=== PATIENT | female | born 1955 | race Caucasian/White ===

== ENCOUNTER → 2016-11-23 | Outpatient (CLI) | payer BC ==
[~2016-11-23] MED LIST: ASPEC325 PO; FOLI1TAB7 PO; FRRG PO; METH2.5T PO; MTH25 PO; OXYC-57 PO; PRED-301 PO
--- NOTE | 2016-11-23 10:58 | DIAGNOSTIC IMAGING REPORT ---
CT OF THE CHEST WITHOUT IV CONTRAST CLINICAL HISTORY: Solitary pulmonary nodule COMPARISON STUDY: 08/26/2015 CT DOSE: 214.32 mGy.cm TECHNIQUE: CT of the thorax was performed from the thoracic inlet to the lung bases. Images are reviewed in the axial, sagittal, and coronal planes. IV contrast was not administered for this examination. FINDINGS: Thyroid: Imaged portions of the thyroid gland are normal in appearance. Thoracic aorta: The thoracic aorta is normal in course and caliber, noting standard 3 vessel arch anatomy. Heart: There is a small pericardial effusion minimally larger than on the prior study. Lungs and pleural spaces: No pleural effusions are visualized. There is no focal pulmonary consolidation. There are multiple bilateral subcentimeter pulmonary nodules. The largest on the right measures 5.5 mm and is located on image #[id number]. This remains unchanged in size. The largest parenchymal nodule on the left measures 4 mm and is located within the left upper lobe on image #[id number]. Multiple subcentimeter subpleural nodules are also visualized. The largest on the left is located in image #[id number]. This measures 6 mm. Mediastinum: There is no mediastinal lymphadenopathy. Angella: Clear. Axilla: Clear. Upper abdomen: Partially visualized upper abdominal viscera is within normal limits. Skeletal structures: There are no lytic or blastic osseous lesions. IMPRESSION: Multiple bilateral subcentimeter parenchymal and subpleural nodules, essentially unchanged from the prior August 2015 study. Electronically signed by: Flo Lacy M.D. 11/23/2016 10:56 AM Dictated Date/Time: 11/23/2016 10:50 AM
== END | disposition home or self-care (01) ==
LOC: C.CTS 09:59
PROVIDERS: ATTEND Internal Medicine
DX: R91.1 Solitary pulmonary nodule (principal)

== ENCOUNTER 2016-12-17 11:14 | Inpatient (IN) | payer BC ==
[2016-11-11 08:13] VITALS: BMI 23.0
--- NOTE | 2016-11-11 08:41 | PAT Medication Instructions ---
Service Date Nov 11, 2016. Current Home Medication List Folic Acid (Folvite), 1 MG PO HS Methotrexate (Methotrexate), 5 TABS PO SATURDAYS Prednisone (Prednisone), 5 MG PO DAILY PRN for RHUEMATOID FLARE Medication Instructions For Your Scheduled Surgery - Check with surgeon/prescribing physician for instructions: Methotrexate (Methotrexate), 5 TABS PO SATURDAYS - Take the following medications the morning of surgery with a sip of water: Prednisone (Prednisone), 5 MG PO DAILY PRN for RHUEMATOID FLARE - Take the following medications as scheduled the night before surgery: Prednisone (Prednisone), 5 MG PO DAILY PRN for RHUEMATOID FLARE Folic Acid (Folvite), 1 MG PO HS If you have any questions please call us at [phone] (Deya Bledsoe PA-C) or [phone] or [phone]
--- NOTE | 2016-11-11 09:40 | DIAGNOSTIC IMAGING REPORT ---
CHEST PREADMISSION(PA/LAT) HISTORY: Preop. COMPARISON: Chest 06/25/2014. FINDINGS: The lungs are clear. Cardiac silhouette is normal in size. No pleural effusions. No pneumothorax. IMPRESSION: No acute process. Electronically signed by: Galileo Blakely M.D. 11/11/2016 9:38 AM
[2016-11-11 09:52] LABS: BASO % 0.5 %; BASO ABS # 0.02 K/uL (0-0.2); COMPLETE YES; EOS % 1.6 %; HEMATOCRIT 38.7 % (37-47); IG% 0.2 %; LYMPH % 22.7 %; LYMPH ABS # 0.97 K/uL (1.2-3.4); MEAN CELL VOLUME 92.1 fL (80-100); MEAN CORPUSCULAR HGB CONC 33.6 g/dl (32-36); MEAN PLATELET VOLUME 10.4 fL (7.4-10.4); MONO % 7.5 %; NEUT % 67.5 %; PLATELET COUNT 229 K/uL (130-400); WHITE BLOOD COUNT 4.27 K/uL (4.8-10.8)
--- NOTE | 2016-11-11 09:59 | DIAGNOSTIC IMAGING REPORT ---
LATERAL CERVICAL SPINE RADIOGRAPHS, INCLUDING FLEXION AND EXTENSION CLINICAL HISTORY: Preoperative evaluation. Rheumatoid arthritis. COMPARISON STUDY: Cervical spine CT August 06, 2014. TECHNIQUE: Lateral radiographs of the cervical spine were obtained in the neutral, flexion and extension positions. FINDINGS: Alignment at the C1-C2 articulation is anatomic. There is no significant change during flexion or extension. There is 2 to 3 mm of anterolisthesis of C7 on T1 which does not significant change with flexion or extension. There is slight retrolisthesis of C5 on C6. This does not change with flexion or extension. There is minimal anterolisthesis of C4 on C5 which does not change with flexion or extension. Moderate multilevel degenerative disc disease is noted. There is no fracture. IMPRESSION: 1. No evidence of C1-C2 instability. 2. Mild anterolisthesis of C7 on T1 which does not significantly change with flexion or extension. 3. Moderate multilevel degenerative disc disease of the cervical spine with mild multilevel facet arthrosis. Electronically signed by: Gildardo Sanchez M.D. 11/11/2016 9:57 AM
[2016-11-11 10:07] LABS: PARTIAL THROMBOPLASTIN RATIO 1.1; PROTHROMBIN TIME (PATIENT) 10.3 SECONDS (9.0-12.0)
[2016-11-11 10:28] LABS: BLOOD UREA NITROGEN 15 mg/dl (7-18); BUN/CREATININE RATIO 23.8 (10-20); C-REACTIVE PROTEIN < 0.29 mg/dl (0-0.29); CALCIUM 9.5 mg/dl (8.5-10.1); CARBON DIOXIDE 27 mmol/L (21-32); CHLORIDE 104 mmol/L (98-107); CREATININE 0.61 mg/dl (0.60-1.20); GLUCOSE 79 mg/dl (70-99); SODIUM 140 mmol/L (136-145)
--- NOTE | 2016-12-10 00:42 | HISTORY & PHYSICAL EXAMINATION ---
DATE OF ADMISSION: 12/17/2016 CHIEF COMPLAINT: Right hip pain. HISTORY OF PRESENT ILLNESS: The patient is a 61-year-old female who is now about a little over 2-1/2 years out from cannulated screw fixation of a right valgus impacted femoral neck fracture. She did quite well until just about a year ago when she started developing pain and discomfort. No injury. Pain was pretty mild, intermittent initially, but over the past 6-7 months, it has gotten significantly worse. Over the past 2 months, it has actually gotten quite a bit worse even more so. She has trouble walking any distance. She describes lateral hip pain, groin pain and thigh pain. She limps with every step. She has really tried to avoid using a cane. She does have some underlying rheumatoid disease as well and on methotrexate for the past 4 years. X-rays show progressive hip collapse. She would like to proceed with surgical treatment. PAST MEDICAL HISTORY: Includes: 1. Colon cancer, status post resection without recurrence. 2. Rheumatoid disease for 4 years. PAST SURGICAL HISTORY: Includes: 1. Include in 1975. 2. Colon resection for cancer in 1996. 3. Hysterectomy. 4. Right cannulated screw fixation of femoral neck fracture done 07/04/2014. ALLERGIES: None. CURRENT MEDICINES: Include: 1. Methotrexate 15 mg once a week. 2. Folic acid 1 mg a day. 3. Prednisone p.r.n. for flareups of rheumatoid disease. SOCIAL HISTORY: A 61-year-old female. The patient is from [place]. FAMILY HISTORY: Noncontributory. REVIEW OF SYSTEMS: Significant for colon cancer, she has been disease free. Denies any chest pain or shortness of breath. No bleeding problems. She does have underlying rheumatoid disease, on methotrexate. PHYSICAL EXAMINATION: GENERAL: Reveals a healthy, pleasant middle-aged female. She looks to be in good health. HEENT: Benign. NECK: Supple. No lymphadenopathy. LUNGS: Clear to auscultation. HEART: Regular rate and rhythm. ABDOMEN: Soft, nontender, nondistended. EXTREMITIES: Grossly neurovascularly intact except as follows: Examination of the right hip and leg reveals the patient walks with a markedly antalgic gait. She is about 0.5 cm short on the right compared to the left. She did have marked pain with any type of hip motion. Her hip does move pretty freely despite this. Negative straight leg raise. X-RAYS: X-rays of the right hip were reviewed. They show cannulated screw fixation of valgus impacted femoral neck fracture. She does have collapse of the femoral head and looks like a segment of AVN. 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 This looks to have developed over the past year and gotten significantly worse over the past 2-3 months. She has failed conservative treatment. PLAN: We talked about treatment. We are going to plan on taking her to the operating room and do right total hip replacement. We will have to take the hardware out. The risks and benefits of this procedure were explained to the patient including but not limited to DVT, PE, , infection, neurological injury, vascular injury, bleeding problem, pain, limited range of motion, stiffness, failure to relieve her symptoms, incomplete relief of symptoms, need for further surgery in the future, fracture, leg length inequality, nerve palsy, persistent pain, dislocation, etc. The patient understands and desires to proceed. Informed consent was obtained. The patient had preoperative workup. Labs were all normal. Sed rate and C-reactive protein are normal. She knows to hold methotrexate 2 weeks preop and 2 weeks postop. She should be able to be discharged to home and use [facility]. I will see her back 2 weeks postop.
[2016-12-17] VITALS (13 sets, daily range): BP systolic 85–111; BP diastolic 57–61; PULSE 58–83; TEMP 36.2–36.9; O2SAT 93–98; Ht 167.6 cm; Wt 66.2 kg
[~2016-12-17] VITALS: Ht 167.6 cm; Wt 66.2 kg
[~2016-12-17 11:14] MED LIST changes: +ACETAMINOPHEN 500 MG TAB PO SCH; -ASPEC325 PO; +BUPIVACAINE 0.5 % 5 MG/1 ML PF 10ML VIAL ONE; +CEFAZOLIN 2000 MG/60 ML D5W 60 ML IV SCH; +FAMOTIDINE 20 MG TAB PO SCH; -FRRG PO; +GABAPENTIN 300 MG CAP PO SCH; +LACTATED RINGER'S 1000ML 1,000 ML IV SCH; +LACTATED RINGER'S 1000ML 500 ML IV ONE; +LACTATED RINGER'S 1000ML IV SCH; +METOCLOPRAMIDE HCL 10 MG TAB PO SCH; -MTH25 PO; -OXYC-57 PO; +SCOPOLAMINE 1.5 MG TDSY TD SCH; +TRANEXAMIC ACID INJ 1,000 MG in SODIUM CHLORIDE 0.9% 100ML 100 ML IV SCH
[2016-12-17] MEDS ORDERED: MoRPHine SULFATE PF 1 MG/ML 10 ML AMP/VIAL ONE (12:30)
[2016-12-17] MEDS ORDERED: MIDAZOLAM HCL 1 MG/ML 2ML VIAL ONE ×2 (12:30→14:37)
[2016-12-17] MEDS ORDERED: PROPOFOL IV EMULSION 10 MG/ML 20 ML VIAL IV ONE (12:31)
[2016-12-17] MEDS ORDERED: ONDANSETRON INJ 2 MG/ML 2 ML VIAL ONE (12:31)
[2016-12-17] MEDS ORDERED: LIDOCAINE HCL 2% 2 ML VIAL (20MG/ML) ONE (12:31)
--- NOTE | 2016-12-17 13:08 | History & Physical Bridge Note ---
H&P Re-Evaluation Bridge Note: I have examined the patient, reviewed the History & Physical and in the interval since the performance of the History & Physical I have noted the following changes of clinical significance: No changes noted
[2016-12-17] MEDS ORDERED: BUPIVACAINE/EPINEPHRINE 0.5% MPF 1:200,000 30 ML VIAL ONE (13:23)
[2016-12-17] MEDS ORDERED: SODIUM CHLORIDE 0.9% 1000ML 1,000 ML IV PRN (14:46)
[2016-12-17] MEDS ORDERED: NALOXONE HCL INJ 0.08 MG in SYRINGE 1.8 ML IV PRN (14:46)
[2016-12-17] MEDS ORDERED: NALOXONE HCL INJ 1 MG in SODIUM CHLORIDE 0.9% 1000ML 1,000 ML IV PRN (14:46)
[2016-12-17] MEDS ORDERED: LACTATED RINGER'S 1000ML 500 ML IV PRN (14:46)
[2016-12-17] MEDS ORDERED: MEPERIDINE HCL 25 MG/ML CARP IV PRN (15:00)
[2016-12-17] MEDS ORDERED: KETOROLAC TROMETHAMINE 30 MG/ML VIAL IV. PRN (15:00)
[2016-12-17] MEDS ORDERED: EpHEDrine SULFATE INJ 50 MG/ML AMP IV PRN (15:00)
[2016-12-17] MEDS ORDERED: NALBUPHINE HCL INJ 10 MG/ML AMP IV PRN (15:00)
[2016-12-17] MEDS ORDERED: MoRPHine SULFATE PF 1 MG/ML 10 ML AMP/VIAL EPI PRN (15:00)
[2016-12-17] MEDS ORDERED: NALOXONE HCL 0.4 MG/1 ML VIAL/CARP IV PRN (15:00)
[2016-12-17] MEDS ORDERED: DiphenhydrAMINE HCL 50 MG/ML VIAL IV PRN (15:00)
[2016-12-17] MEDS ORDERED: ONDANSETRON INJ 2 MG/ML 2 ML VIAL IV PRN (15:00)
[2016-12-17] MEDS ORDERED: NO NARCOTICS OR SEDATIVES SCH (15:00)
[2016-12-17] MEDS ORDERED: MoRPHine SULFATE 2 MG/ML CARP IV PRN (15:00)
[2016-12-17] MEDS ORDERED: BACITRACIN 50,000 UNITS IR ONE (15:05)
--- NOTE | 2016-12-17 15:25 | [facility] Post Operative Brief Note ---
Immediate Operative Summary Operative Date Dec 17, 2016. Pre-Operative Diagnosis Right hip pain, avascular necrosis and secondary DJD Post-Operative Diagnosis same as pre-operative Procedure(s) Performed Right Hip Hardware Removal; Right Total Hip Arthroplasty Uncemented Surgeon Dr. Isauro Connelly [employer] Surgeon(s) Joe Devlin PA-C Estimated Blood Loss 300 mL Findings Right Hip AVN + DJD Fluids (cc crystalloids) 2000 cc Specimens Permanent specimens A: Right femoral head B: Explanted hardware right hip Drains None Anesthesia Spinal Complication(s) None Disposition Recovery Room / PACU
[2016-12-17] MEDS ORDERED: BISACODYL 10 MG SUPP PR PRN (15:30)
[2016-12-17] MEDS ORDERED: ALUMINUM/MAGNESIUM/SIMETH (MAALOX MAX) 30 ML UDC PO PRN (15:30)
[2016-12-17] MEDS ORDERED: SILVER SULFADIAZINE 1% CR 50 GM JAR EXT PRN (15:30)
[2016-12-17] MEDS ORDERED: MAGNESIUM HYDROXIDE SUSP 30 ML UDC PO PRN (15:30)
--- NOTE | 2016-12-17 15:53 | Anesthesiology Progress Note ---
Anesthesia Post Op Note Date & Time Dec 17, 2016 at 15:53 Vital Signs Pain Intensity: 0 Vital Signs Past 12 Hours Date Time Temp Pulse Resp B/P Pulse Ox O2 Delivery O2 Flow Rate FiO2 12/17/16 15:50 36.4 97 20 93/54 97 Nasal Cannula 2 12/17/16 15:40 91 20 99/55 97 Mask 5 12/17/16 15:30 80 20 93/64 98 Mask 10 12/17/16 15:27 36.3 88 20 94/54 99 Mask 10 12/17/16 12:06 36.9 72 16 111/59 97 Room Air Notes Mental Status: alert / awake / arousable, participated in evaluation Pt Amnestic to Procedure: Yes Nausea / Vomiting: adequately controlled Pain: adequately controlled Airway Patency, RR, SpO2: stable & adequate BP & HR: stable & adequate Hydration State: stable & adequate Neuraxial Anesthesia: was administered, sensory block is resolving Anesthetic Complications: no major complications apparent
--- NOTE | 2016-12-17 15:54 | DIAGNOSTIC IMAGING REPORT ---
AP PELVIS AND RIGHT HIP 2 VIEWS CLINICAL HISTORY: Postop hip arthroplasty COMPARISON STUDY: 11/02/2016 FINDINGS: There are postsurgical changes of a total right hip arthroplasty. There is no dislocation. There are no acute fractures. There are overlying skin ilan. There is air within soft tissues consistent with history of recent surgery. IMPRESSION: Postsurgical changes of a total right hip arthroplasty Electronically signed by: Flo Lacy M.D. 12/17/2016 3:52 PM Dictated Date/Time: 12/17/2016 3:51 PM
[2016-12-17] MEDS: CHECK SCOPOLAMINE PATCH PLACEMENT SCH ×2 (16:26→23:59)
[2016-12-17] MEDS: D5W AND 1/2NSS + 20MEQ KCL 1,000 ML IV SCH (17:25)
[2016-12-17] MEDS: FERROUS GLUCONATE 324 MG TAB PO SCH (17:27)
[2016-12-17] MEDS: DOCUSATE SODIUM 100 MG CAP PO SCH (21:45)
[2016-12-17] MEDS: ACETAMINOPHEN 500 MG TAB PO SCH (21:46)
[2016-12-17] MEDS: CEFAZOLIN IV 1,000 MG in DEXTROSE 5% 50ML 50 ML IV SCH (21:58)
[2016-12-17] MEDS ORDERED: TRANEXAMIC ACID INJ 1,000 MG in SODIUM CHLORIDE 0.9% 100ML 100 ML IV SCH (22:00)
[2016-12-17] MEDS: ASPIRIN 325 MG ECTAB PO SCH (22:01)
[2016-12-18] VITALS (14 sets, daily range): BP systolic 86–120; BP diastolic 53–70; PULSE 56–81; TEMP 36.2–37; O2SAT 92–100
[2016-12-18] MEDS: D5W AND 1/2NSS + 20MEQ KCL 1,000 ML IV SCH ×2 (04:08→12:49)
--- NOTE | 2016-12-18 04:28 | OPERATIVE REPORT ---
DATE OF OPERATION: 12/17/2016 SURGEON: Dr. Isauro Connelly. BULLION WEIGHER: DARLENE Owens PREOPERATIVE DIAGNOSIS: 1. Right hip degenerative joint disease, secondary to avascular necrosis, status post a femoral neck fracture. 2, Retained hardware, status post a femoral neck fracture fixation. POSTOPERATIVE DIAGNOSIS: Same. PROCEDURES PERFORMED: 1. Right [id number] cross-linked polyethylene, uncemented total hip arthroplasty. 2. Right hip hardware removal. COMPLICATIONS: None. ESTIMATED BLOOD LOSS: 300 mL FLUID REPLACEMENT: 2000 mL crystalloid fluid replacement. ANESTHESIA: Spinal. DRAINS: None. SPECIMENS: 1. Right femoral head sent for pathology. 2. Right hip hardware. OPERATIVE INDICATIONS: The patient is a 61-year-old female with underlying rheumatoid disease, is 2-1/2 years out from a valgus impacted femoral neck fracture. She did not have any significant arthritis in her hip at that time and we treated her with cannulated screw fixation. She did well until about 6 months ago, when she developed significantly increased pain and discomfort in the right hip, markedly progressive over the past several months. She is having trouble getting around. X-rays showed collapse of the femoral head and secondary arthritis. The patient elected to proceed with operative treatment. OPERATIVE FINDINGS: Operative findings revealed avascular necrosis with collapse of the femoral head. She did have a very deficient posterior acetabular wall and a fairly poor formed acetabular wall. She did not have bone destruction of the acetabulum, but there was cartilage damage to the acetabulum. A moderate-sized joint effusion. Moderate synovitis. OPERATIVE IMPLANTS: Operative implants consisted of: 1. Biomet G7 size 52 mm acetabular shell. 2. A 6.5 cancellous acetabular screws, one at 35 mm in length, one at 15 mm in length. 3. An apex hole eliminator. 4. Biomet highly cross-linked polyethylene liner with a 52 mm outer diameter, 32 mm inner diameter with a +4 offset. 5. DePuy size 12 small stature AML femoral stem. 6. A +5/32 mm ceramic articular ball. OPERATIVE PROCEDURE: The patient was taken to the operating room, identified and placed on the operating table in supine position. All contact areas were appropriately padded. IV antibiotics were provided by anesthesia team. A spinal anesthetic had been implemented in the holding area. A Rowland catheter was placed in sterile fashion. The patient was then placed in the left lateral decubitus position. An axillary roll was placed. A Stulberg hip positioner was used for positioning. The right hip and leg were then prepped and draped in the usual sterile fashion. A posterolateral approach to the right hip was then performed through a curvilinear incision centered over the greater trochanter. Sharp dissection was carried through the subcutaneous tissues down to the level of the IT band and gluteal fascia. The IT band and gluteal fascia were then incised longitudinally in line with the skin incision. The underlying greater trochanteric bursa was excised. The piriformis and external rotators as well as the posterior capsule were then released from the posterior aspect of the femur as a single sleeve. Great care was taken throughout the procedure to protect the sciatic nerve at all times. The hip was internally rotated and dislocated. A femoral neck osteotomy cut was made with the final cut about a centimeter above the lesser trochanter. After cutting part of the way through the neck, I elected to remove the screws, as I could not complete the cut. The hip was then relocated. An incision was made directly over the vastus lateralis right over the screw heads. I then backed out each of the 3 screws along with the one washer and removed those. We then redislocated the hip. The femoral neck osteotomy was completed. Femoral head was removed and sent for pathology. The femur was retracted anteriorly and attention was then drawn to the acetabulum. The acetabular labrum was excised, then the pulvinar fat was excised. Sequential reaming of the acetabulum was then performed, beginning with a size 45 and progressing up to a 51. A 52 mm Biomet acetabular shell was then placed in about 40 degrees of lateral opening and 20-25 degrees of anteversion. Once again, her posterior wall was fairly deficient. We did get good interference fit. It was fixed with two 6.5 cancellous acetabular screws. I did remove a small anterior osteophyte. A trial liner was placed. Attention was then drawn to the femur. The proximal femur was entered with a cookie cutter followed by a canal finder and lateralizing reamer. Sequential reaming of the femur was then performed, beginning with a size 9 and progressing up to 11-1/2 till we got a pretty good chatter at 12. I then broached, beginning with a size 10.5 small broach and progressing to a 12 small. I did not think I could get the large broach in. The calcar reamer was used to smoothen off the calcar. We then trialed the hip. The soft tissue was extremely lax. I could almost just pop her hip back in without any traction. Therefore, we elected to place the +5 offset polyethylene liner. I really did not want to lengthen her any more, but we did get some improved soft tissue tension, but it was still pretty lax. Of note, her abductors were intact, but they just seemed really lax. Her hip was extremely stable with full extension and external rotation without instability and flexion to 90 degrees and internal rotation to 70 degrees. I elected to use these implants. All trial implants were removed. An apex hole eliminator was placed. A highly cross-linked polyethylene liner with a +5 offset was placed. A 12 small stature AML femoral stem was impacted in position. We had excellent scratch fit. A +5/32 mm ceramic articular ball was placed. The hip was once again located and found to be stable. Once again, it was a bit lax. The hip abductors seemed lax, but they were intact and we elected to accept this. Attention was then drawn toward closing. The wound was irrigated with copious amounts of pulsatile lavage solution. I did inject locally with 60 mL of 0.5% Marcaine with epinephrine. The posterior capsule and external rotators were repaired together with #2 TiCron sutures to the back of the greater trochanter through drill holes. The IT band and gluteal fascia were then closed with #1 PDS suture in a running fashion. I also closed the vastus lateralis with #1 PDS suture in a running fashion. The subcutaneous tissues were then closed in 2 layers and the deep layer with #1 Vicryl suture subcutaneous tissues with 2-0 Dexon suture in a buried interrupted fashion. The skin was the closed with skin ilan. Leg was then cleaned and dried and a sterile dressing with Xeroform, 4 x 4s, sterile ABD pad and foam tape was applied. The patient was then transferred to the recovery room in stable condition. The patient tolerated the procedure well with no complications. All needle and sponge counts were correct at the end of the operation. I attest to the content of the Intraoperative Record and any orders documented therein. Any exceptions are noted below. CARLEY
[2016-12-18] MEDS: CEFAZOLIN IV 1,000 MG in DEXTROSE 5% 50ML 50 ML IV SCH (05:39)
[2016-12-18] MEDS: ACETAMINOPHEN 500 MG TAB PO SCH ×3 (05:40→20:42)
[2016-12-18] MEDS: KETOROLAC TROMETHAMINE 30 MG/ML VIAL IV. SCH ×4 (05:40→23:23)
[2016-12-18 06:40] LABS: COMPLETE YES; HEMATOCRIT 30.9 % (37-47); LYMPH % 10.2 %; LYMPH ABS # 0.58 K/uL (1.2-3.4); MEAN CELL VOLUME 90.6 fL (80-100); MEAN CORPUSCULAR HEMOGLOBIN 30.5 pg (25-34); MEAN CORPUSCULAR HGB CONC 33.7 g/dl (32-36); MEAN PLATELET VOLUME 10.3 fL (7.4-10.4); NEUT % 82.8 %; PLATELET COUNT 157 K/uL (130-400); RED BLOOD COUNT 3.41 M/uL (4.2-5.4)
[2016-12-18] MEDS ORDERED: ASPEC325 PO (06:47)
[2016-12-18] MEDS ORDERED: FRRG PO (06:47)
[2016-12-18] MEDS ORDERED: OXYC-57 PO (06:47)
--- NOTE | 2016-12-18 06:49 | Discharge Instructions ---
Discharge Instructions Admission Reason for Admission: Right Hip Pain, Avascular Necrosis Of Hip Bone Discharge Discharge Diagnosis / Problem: Right Hip Replacement Discharge Goals Goal(s): Decrease discomfort, Improve function, Increase independence, Improve disease control, Therapeutic intervention Activity Recommendations Activity Limitations: per Instructions/Follow-up section (Total Hip Precautions ) Weightbearing Status: Right weightbearing . Instructions / Follow-Up Instructions / Follow-Up ACTIVITY RECOMMENDATIONS: Physical Therapy: * Aggressive physical therapy is not usually needed. You will learn to take care of yourself safely and walk. * Follow the "Hip Precautions Instructions." * In some cases, the social media senior associate at the hospital will arrange to have a therapist come to your house for the first couple of weeks to help you learn these skills. * You need to practice on your own or with the help of a family member as needed. * When you learn these skills, most of the therapy can be done on your own. Home Exercise: * You were shown a series of exercises in the hospital. Do these exercises three to four times each day including the exercises you were shown in physical therapy. Walking: * Get up and walk several times each day. For the first four weeks, try not to stand or walk for more than one hour at a time. If you do stand or walk for more than one hour, you will not hurt anything, but your leg will likely swell. * As you feel comfortable, you may change from the walker or crutches to a cane and then to independent walking. MEDICATIONS: New Medicine: * You will likely be taking one or more of these medicines: 1. Percocet - Take, as directed, when you need it, every four to six hours to control your pain. 2. Iron Sulfate - Take three times each day for the month after surgery to help you replace the blood lost during surgery. 3. Aspirin - Thins your blood to lessen the chance of forming a blood clot. * The most common side effects of pain medicine and iron are nausea and constipation. If nausea or constipation is too much of a problem or if you have any questions about your new medicines or doses, call [facility] at [phone]. We will try to help you manage these issues. VERY IMPORTANT TO READ AND REVIEW" Pain: * The immediate post-operative period after hip replacement surgery is often quite painful. * You are given a prescription for pain medicine. You should take it, as directed, when you need it, especially before physical therapy and before going to bed. Pain that interferes with sleep is very common and can last several months. * You will likely need pain medicine for the first two to four weeks. It will not stop all of the pain. The pain will lessen and as you feel better, you may change to milder pain medicine such as Tylenol. * The most common side effects of pain medicine are nausea and constipation, so don't take more than you need. SPECIAL CARE INSTRUCTIONS: TEDs/Elastic Stockings: * The white elastic stockings help limit swelling and prevent blood clots from forming in your legs. The more you wear them, the more they work. * Wear them for six weeks. Prevention of Infection: * Take antibiotics one hour before any dental cleaning, dental work, urological procedure, gastrointestinal procedure or any invasive surgery in order to prevent your new joint from getting infected. * You may get the antibiotics from the doctor performing the procedure or you may call our office at before and we will call in a prescription to the pharmacy of your choice. Things to Watch For: * Drainage from the incision site that occurs more than one week after your surgery. * Severely increased leg pain or swelling. * Increased redness at the incision site. * Fever above 102 degrees Fahrenheit. * Unusual chest pain or shortness of breath. * Unusual pain or burning with urination. Call [facility] at with any of the above problems or if you have any questions about your medicines or recovery. FOLLOW UP VISIT: Make an appointment to see your doctor for approximately two weeks after surgery for a progress check and staple removal by calling the office at . Current Hospital Diet Patient's current hospital diet: Regular Diet Discharge Diet Recommended Diet: Regular Diet Procedures Procedures Performed: Right Hip Hardware Removal; Right Total Hip Arthroplasty Uncemented Pending Studies Studies pending at discharge: no Medical Emergencies . Who to Call and When: Medical Emergencies: If at any time you feel your situation is an emergency, please call [phone] immediately. . Non-Emergent Contact Non-Emergency issues call your: Surgeon . "Provider Documentation" section prepared by Isauro Connelly. VTE Core Measure Inpt VTE Proph given/why not?: Other Anticoagulation, T.E.D. Stockings, SCD's
[2016-12-18] MEDS ORDERED: METOCLOPRAMIDE HCL INJ 5 MG/ML 2 ML VIAL IV PRN (07:00)
[2016-12-18] MEDS ORDERED: OXYCODONE HCL IR 5 MG TAB (IMMEDIATE RELEASE) PO PRN (07:00)
[2016-12-18] MEDS ORDERED: ONDANSETRON INJ 2 MG/ML 2 ML VIAL IV PRN (07:00)
[2016-12-18] MEDS ORDERED: DiphenhydrAMINE HCL 50 MG/ML VIAL IV PRN (07:00)
[2016-12-18] MEDS ORDERED: ZOLPIDEM TARTRATE 5 MG TAB PO PRN (07:00)
[2016-12-18] MEDS ORDERED: MoRPHine SULFATE 2 MG/ML CARP IV PRN (07:00)
[2016-12-18] MEDS ORDERED: DC INTRASPINAL MORPHINE ONE (07:00)
[2016-12-18 07:17] LABS: BUN/CREATININE RATIO 17.7 (10-20); CALCIUM 8.4 mg/dl (8.5-10.1); CREATININE 0.61 mg/dl (0.60-1.20)
[2016-12-18] MEDS: CHECK SCOPOLAMINE PATCH PLACEMENT SCH ×3 (08:00→23:21)
--- NOTE | 2016-12-18 08:18 | PROGRESS NOTE ---
DATE: 12/18/2016 SUBJECTIVE: A 61-year-old female postop day #1 from a right total hip replacement. She also has some underlying rheumatoid disease. She is doing well. Not having any significant pain. Denies any chest pain or shortness of breath. Not feeling dizzy or lightheaded. OBJECTIVE: VITAL SIGNS: Temperature 36.3. Vital signs stable. PHYSICAL EXAMINATION: GENERAL: Reveals a healthy, pleasant middle-aged female. She is sitting up in bed and looks pretty comfortable. LUNGS: Clear to auscultation. HEART: Regular rate and rhythm. ABDOMEN: Soft, nontender, nondistended. EXTREMITIES: Grossly neurovascularly intact except as follows. Examination of the right lower extremity reveals the leg to be well aligned. The dressing is clean, dry and intact. Hip is located. She is neurologically intact. LABS: Pending. ASSESSMENT: A 61-year-old female postop day #1 from a right total hip replacement, doing well. Pain is controlled. Hip is located. She is neurologically intact. PLAN: 1. DVT prophylaxis including thigh-high TEDs, SCDs, and aspirin twice a day. 2. PT/OT. Weightbearing as tolerated. Right total hip protocol. 3. Pain control. Doing well with current pain regimen. 4. Disposition: She has plans to be discharged home with home health once adequately recovered.
[2016-12-18] MEDS: PANTOprazole SOD 40 MG TAB PO SCH (08:37)
[2016-12-18] MEDS: TAPENTADOL ER 50 MG TABCR PO SCH ×2 (08:38→20:42)
[2016-12-18] MEDS: DOCUSATE SODIUM 100 MG CAP PO SCH ×2 (08:38→20:42)
[2016-12-18] MEDS: FERROUS GLUCONATE 324 MG TAB PO SCH ×3 (08:38→17:54)
[2016-12-18] MEDS: MULTIVITAMIN TAB PO SCH (08:38)
[2016-12-18] MEDS: ASPIRIN 325 MG ECTAB PO SCH ×2 (08:38→20:42)
[2016-12-19] MEDS: ACETAMINOPHEN 500 MG TAB PO SCH (05:36)
[2016-12-19 07:42] VITALS: BP 112/67; PULSE 73; TEMP 36.6; O2SAT 95
[2016-12-19] MEDS: TAPENTADOL ER 50 MG TABCR PO SCH (08:37)
[2016-12-19] MEDS: DOCUSATE SODIUM 100 MG CAP PO SCH (08:37)
[2016-12-19] MEDS: FERROUS GLUCONATE 324 MG TAB PO SCH (08:38)
[2016-12-19] MEDS: MULTIVITAMIN TAB PO SCH (08:38)
[2016-12-19] MEDS: ASPIRIN 325 MG ECTAB PO SCH (08:38)
[2016-12-19] MEDS: PANTOprazole SOD 40 MG TAB PO SCH (08:38)
[2016-12-19 08:45] VITALS: BP 112/67; PULSE 73; TEMP 36.6; O2SAT 95
--- NOTE | 2016-12-19 08:56 | PROGRESS NOTE ---
DATE: 12/19/2016 SUBJECTIVE: A 61-year-old female postop day 2 from a right total hip replacement and hardware removal. She is doing well. Pain is controlled. Therapy has gone well. Denies any chest pain or shortness of breath. Not feeling dizzy or lightheaded. OBJECTIVE: VITAL SIGNS: Temperature is 36.6. Vital signs stable. PHYSICAL EXAMINATION: GENERAL: Reveals a pleasant, middle-aged female. She is lying in bed, looks pretty comfortable. EXTREMITIES: Examination of the right hip reveals the dressing to be clean, dry and intact. Leg lengths are equal. Hip is located. She is neurologically intact. ASSESSMENT: A 61-year-old female postop day 2 from right total hip replacement and hardware removal, doing well. Pain is controlled. PLAN: 1. DVT prophylaxis including thigh-high TEDs, SCDs, and aspirin twice a day. 2. PT/OT. Weightbearing as tolerated. Right total hip protocol. 3. Pain control, doing well with current pain regimen. 4. Disposition: Plan to discharge to home with home health once adequately recovered.
[2016-12-19 10:21] VITALS: BP 112/67; PULSE 73; O2SAT 95
--- NOTE | 2016-12-29 14:04 | DISCHARGE SUMMARY ---
ADMITTING PHYSICIAN AND SURGEON: Dr. Connelly. ADMITTING DIAGNOSIS: 1. 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 2. Retained hardware from right femoral neck fracture. PROCEDURE PERFORMED: Right hip hardware removal. SURGERY PERFORMED: Right total hip arthroplasty. SECONDARY DIAGNOSES: Colon cancer, rheumatoid disease. HISTORY AND PHYSICAL EXAMINATION: Well documented in the patient's chart. HOSPITAL COURSE: The patient was admitted on 12/17/2016 underwent hardware removal and total hip arthroplasty and tolerated the procedure well. There were no complications. She was transferred to the PACU postoperatively and later to the orthopedic floor for further care. She was given Ancef for antibiotic prophylaxis, AMARILIS stockings, SCDs and aspirin for DVT prophylaxis. Her hemoglobin, hematocrit and vital signs were monitored during her hospital stay and remained stable. She developed some mild postoperative anemia with a hemoglobin down to 10.4, but did not require any blood transfusions. There were no complications. By postoperative day 2, she was tolerating a general diet, pain was controlled with oral pain medicine. She was participating in physical therapy and had no signs or symptoms of deep vein thrombosis. On postop day 2, she was discharged home in good condition, set up with home health services. She was given printed discharge instructions including new prescriptions for aspirin 325 mg b.i.d., iron supplement and Percocet. She can continue her home medications with the exception of methotrexate which she was told to stop. Continue physical therapy. Weightbearing as tolerated. Instructed on total hip precautions. Follow up in 10-12 days or sooner if there are any problems or concerns.
== END 2016-12-19 12:37 | disposition home health service (06) | DRG 470 ==
LOC: ENRESERVTM → ENRESERVDT → C.ACU 11:14 → C.3E 12:20
PROVIDERS: ADMIT Orthopaedic Surgery Sports Medicine; ATTEND Orthopaedic Surgery Sports Medicine
PROC: 0SR904A Replacement of Right Hip Joint with Ceramic on Polyethylene Synthetic Substitute, Uncemented, Open Approach (ICD-10-PCS; principal; 2016-12-17 13:00)
PROC: 0SPB04Z Removal of Internal Fixation Device from Left Hip Joint, Open Approach (ICD-10-PCS; principal; 2016-12-17 13:00)
DX: M87.851 Other osteonecrosis, right femur (principal); M16.11 Unilateral primary osteoarthritis, right hip; M65.9 Synovitis and tenosynovitis, unspecified; M06.9 Rheumatoid arthritis, unspecified; Z85.038 Personal history of other malignant neoplasm of large intestine; Z90.49 Acquired absence of other specified parts of digestive tract; Z90.710 Acquired absence of both cervix and uterus; Z98.890 Other specified postprocedural states; Z79.899 Other long term (current) drug therapy

== ENCOUNTER → 2017-03-03 | Outpatient (CLI) | payer BC ==
[~2017-03-03] MED LIST changes: -ACETAMINOPHEN 500 MG TAB PO SCH; +ASPEC325 PO; -BUPIVACAINE 0.5 % 5 MG/1 ML PF 10ML VIAL ONE; -CEFAZOLIN 2000 MG/60 ML D5W 60 ML IV SCH; -FAMOTIDINE 20 MG TAB PO SCH; +FRRG PO; -GABAPENTIN 300 MG CAP PO SCH; -LACTATED RINGER'S 1000ML 1,000 ML IV SCH; -LACTATED RINGER'S 1000ML 500 ML IV ONE; -LACTATED RINGER'S 1000ML IV SCH; -METH2.5T PO; -METOCLOPRAMIDE HCL 10 MG TAB PO SCH; +MTH25 PO; -SCOPOLAMINE 1.5 MG TDSY TD SCH; -TRANEXAMIC ACID INJ 1,000 MG in SODIUM CHLORIDE 0.9% 100ML 100 ML IV SCH
[2017-03-03 12:25] LABS: BASO % 0.5 %; BASO ABS # 0.02 K/uL (0-0.2); COMPLETE YES; EOS % 2.2 %; HEMATOCRIT 37.6 % (37-47); MEAN CELL VOLUME 91.9 fL (80-100); MEAN CORPUSCULAR HEMOGLOBIN 29.3 pg (25-34); MEAN CORPUSCULAR HGB CONC 31.9 g/dl (32-36); MEAN PLATELET VOLUME 10.8 fL (7.4-10.4); MONO % 10.8 %; NEUT % 64.5 %; PLATELET COUNT 210 K/uL (130-400); RED BLOOD COUNT 4.09 M/uL (4.2-5.4); WHITE BLOOD COUNT 4.09 K/uL (4.8-10.8)
[2017-03-03 14:23] LABS: ALT/SGPT 20 U/L (12-78); AST/SGOT 11 U/L (15-37); BLOOD UREA NITROGEN 16 mg/dl (7-18); BUN/CREATININE RATIO 26.9 (10-20); C-REACTIVE PROTEIN 0.84 mg/dl (0-0.29); CALCIUM 8.9 mg/dl (8.5-10.1); CARBON DIOXIDE 26 mmol/L (21-32); CHLORIDE 110 mmol/L (98-107); CREATININE 0.58 mg/dl (0.60-1.20); GLUCOSE 81 mg/dl (70-99); POTASSIUM 3.7 mmol/L (3.5-5.1); SODIUM 143 mmol/L (136-145)
[2017-03-03 14:25] LABS: ALB/GLOB RATIO 1.1 (0.9-2); ALKALINE PHOSPHATASE 78 U/L (45-117)
== END | disposition home or self-care (01) ==
LOC: C.LABBFT 08:41
PROVIDERS: ATTEND Internal Medicine
DX: M05.79 Rheumatoid arthritis with rheumatoid factor of multiple sites without organ or systems involvement (principal)

== ENCOUNTER 2017-06-27 11:30 | Emergency (ER) | payer BC ==
[~2017-06-27] VITALS: Ht 167.6 cm; Wt 68.0 kg
[~2017-06-27 11:30] MED LIST changes: -MTH25 PO
[2017-06-27] MEDS ORDERED: MTH25 PO (12:01)
[2017-06-27] MEDS ORDERED: MoRPHine SULFATE 4 MG/ML 1 ML CARP\\VIAL IV STA (12:01)
[2017-06-27 12:20] VITALS: BP 103/59; PULSE 51; O2SAT 99
--- NOTE | 2017-06-27 12:40 | DIAGNOSTIC IMAGING REPORT ---
RIGHT PELVIS/UNILATERAL HIP 2-3VIEWS CLINICAL HISTORY: Right hip dislocation. COMPARISON: Pelvis and right hip radiographs December 17, 2016. FINDINGS: Note is made of superior dislocation of the femoral component of the right hip arthroplasty with respect to the acetabular cup. No acute fracture is identified. IMPRESSION: Superior dislocation of the femoral component of the right hip arthroplasty. No acute fracture. Electronically signed by: Gildardo Sanchez M.D. 06/27/2017 12:39 PM Dictated Date/Time: 06/27/2017 12:37 PM
[2017-06-27] MEDS ORDERED: MoRPHine SULFATE 10 MG/ML CARP/VIAL IV PRN (12:45)
[2017-06-27 13:37] VITALS: BP 103/61; TEMP 36.5; O2SAT 100; Ht 167.6 cm; Wt 68.0 kg
--- NOTE | 2017-06-27 13:37 | History and Physical ---
History & Physical Date Jun 27, 2017. (Joe Devlin PA) Chief Complaint Right hip pain (Joe Devlin PA) History of Present Illness The patient is a 61 year old female with complaints of right hip pain. She is approx 6 months out from cannulated screw removal and right JARROD. She was doing well until this morning at about 11am. She was bending over to pull something from the ground when her hip popped. She had immediate pain in her hip and unable to bear weight. She presented to the ED for further eval. C/o only hip pain at this time. (Joe Devlin PA) Past Medical/Surgical History Medical Problems: (1) Rheumatoid arthritis (2) Right Hip AVN (3) Right Hip DJD 4) colon Cancer PSH: C section colon resection hysterectomy screw fixation of right hip fx right jarrod (Joe Devlin PA) Additional History Other: Review of systems: non contributory. (Joe Devlin PA) Allergies Coded Allergies: No Known Allergies (Verified , 06/27/17) Home Medications Scheduled Folic Acid (Folvite), 1 MG PO HS Methotrexate (Methotrexate), 2.5 MG PO WK Scheduled PRN Prednisone (Prednisone), 5 MG PO DAILY PRN for RHUEMATOID FLARE Physical Examination Respiratory/Chest: lungs clear Cardiovascular: regular rate, rhythm Extremities: + pertinent finding (right leg, shortened and internally rotated. Hip painful with any movement in bed. NVI. Able to DF/PF appropriately. ) Addiitonal Comments: xrays show right hip dislocation (Joe Devlin PA) Diagnosis Right Hip dislocation (Joe Devlin PA) Plan of Treatment NPO now. Last had something to eat or drink at 8:30am today. Will plan on closed reduction of right hip in the OR. Procedure explained including risk and benefit. Consent obtained. (Joe Devlin PA)
[2017-06-27 14:11] VITALS: O2SAT 96
--- NOTE | 2017-06-27 14:17 | EMERGENCY ROOM VISIT NOTE ---
History Report prepared by Bozenaibe: Carrol Johnson Under the Supervision of: Dr. Mat Haas D.O. First contact with patient: 11:53 Chief Complaint: HIP PAIN Stated Complaint: R HIP PAIN, HIP REPLACEMENT History of Present Illness The patient is a 61 year old female who presents to the Emergency Room with complaints of right hip discomfort. The patient states that around 11 AM this morning she was bending over to pick some weeds and heard a pop in the right hip. She had a hip replacement by Dr. Connelly done in the recent past. The patient denies any other symptoms other than the pain for she denies falling or striking her head. She denies any recent illnesses, abdominal pains, bowel or bladder dysfunction. Source of History: patient Onset: 11 am this morning Position: other (hip) Quality: other (discomfort) Associated Symptoms: No abdominal pain, No diarrhea, No urinary symptoms Note: pt denies falling, hitting head, and recent illness. Review of Systems As above otherwise negative for 10 systems Past Medical & Surgical Medical Problems: (1) Rheumatoid arthritis (2) Right Hip AVN (3) Right Hip DJD Family History no pertinent family history stated Social History Smoking Status: Never Smoker Alcohol Use: none Drug Use: none Marital Status: Housing Status: lives with family Current/Historical Medications Scheduled Folic Acid (Folvite), 1 MG PO HS Methotrexate (Methotrexate), 2.5 MG PO WK Scheduled PRN Prednisone (Prednisone), 5 MG PO DAILY PRN for RHUEMATOID FLARE Allergies Coded Allergies: No Known Allergies (Verified , 06/27/17) Physical Exam Vital Signs Date Time Temp Pulse Resp B/P (MAP) Pulse Ox O2 Delivery O2 Flow Rate FiO2 06/27/17 14:11 64 16 112/66 96 06/27/17 13:43 55 122/65 100 Nasal Cannula 2.0 06/27/17 13:37 36.5 18 103/61 100 Nasal Cannula 2.0 06/27/17 12:59 100 Nasal Cannula 2.0 06/27/17 12:55 67 103/61 93 Room Air 06/27/17 12:29 49 104/63 100 Room Air 06/27/17 12:20 51 18 103/59 99 Room Air 06/27/17 12:16 55 06/27/17 12:14 36.5 52 18 103/59 97 Room Air Physical Exam CONSTITUTIONAL/VITAL SIGNS: Reviewed / noted above. GENERAL: Non-toxic in appearance. INTEGUMENTARY: Warm, dry, and [place]. HEAD: Normocephalic. EYES: without scleral icterus or trauma. ENT/OROPHARYNX: clear and moist. LYMPHADENOPATHY/NECK: Is supple without lymphadenopathy or meningismus. RESPIRATORY: Lungs clear and equal. CARDIOVASCULAR: Regular rate and rhythm. GI/ABDOMEN: Soft and nontender. No organomegaly or pulsatile mass. No rebound or guarding. Normal bowel sounds. EXTREMITIES: Warm and well perfused. The patient has a shortened and internally rotated right leg. Good pulses. BACK: No CVA tenderness. NEUROLOGICAL: Intact without focal deficits. PSYCHIATRIC: normal affect. MUSCULOSKELETAL: Normally developed with good muscle tone. TRIAGE NURSING DOCUMENTATION REVIEWED. Medical Decision & Procedures ER Provider Diagnostic Interpretation: Radiology results as stated below per my review and radiologist interpretation: RIGHT PELVIS/UNILATERAL HIP 2-3VIEWS FINDINGS: Note is made of superior dislocation of the femoral component of the right hip arthroplasty with respect to the acetabular cup. No acute fracture is identified. IMPRESSION: Superior dislocation of the femoral component of the right hip arthroplasty. No acute fracture. Electronically signed by: Gildardo Sanchez M.D. Medications Administered Medications (Trade) Dose Ordered Sig/Jeremy Route Start Time Stop Time Status Last Admin Dose Admin Morphine Sulfate (MoRPHine SULFATE INJ) 4 mg NOW STAT IV 06/27/17 12:01 06/27/17 12:02 DC 06/27/17 12:09 4 MG Morphine Sulfate (MoRPHine SULFATE INJ) 6 mg Q15M PRN IV 06/27/17 12:45 07/11/17 12:44 06/27/17 12:50 6 MG ED Course 1155: Previous medical records were reviewed. The patient was evaluated in room B1. A complete history and physical examination was performed. 1201: Morphine Sulfate 4 mg IV 1240: Discussed the patient's case with Dr. Connelly-Orthopedics. 1245: Morphine Sulfate 6 mg IV 1305: I discussed the patient's radiology results with her. 1340: On reevaluation, the patient is resting. I discussed the results and findings with the patient. She verbalized agreement of the treatment plan. I spoke with Dr. Connelly. The patient will be evaluated for further management and care. Medical Decision Differential diagnosis: Etiologies such as fracture, dislocation, neurovascular compromise, compartment syndrome, soft tissue injury, as well as others were entertained. The patient is a 61 year old female who presents to the Emergency Room with complaints of right hip discomfort. The patient states that around 11 AM this morning she was bending over to pick some weeds and heard a pop in the right hip. She had a hip replacement by Dr. Connelly done in the recent past. X-rays reveal a right hip dislocation. I spoke with Dr. Connelly about this. He will take the patient to the OR for reduction. The patient last ate at 8:30 AM. Medication Reconcilliation Current Medication List: was personally reviewed by me Blood Pressure Screening Patient's blood pressure: Low blood pressure Blood pressure disposition: Did not require urgent referral Consults Time Called: 1230 Consulting Physician: Dr. Connelly-Orthopedics Returned Call: 1240 Discussed the patient's case. Impression Primary Impression: Hip dislocation, right Scribe Attestation The scribe's documentation has been prepared under my direction and personally reviewed by me in its entirety. I confirm that the note above accurately reflects all work, treatment, procedures, and medical decision making performed by me. Departure Information Dispostion Being Evaluated By Hospitalist Referrals Andrea Sharif M.D. (PCP) Patient Instructions My [facility]
[2017-06-27] MEDS ORDERED: PROPOFOL IV EMULSION 10 MG/ML 20 ML VIAL IV ONE (14:27)
[2017-06-27] MEDS ORDERED: LIDOCAINE HCL 2% 2 ML VIAL (20MG/ML) ONE (14:27)
[2017-06-27] MEDS ORDERED: FENTANYL CITRATE INJ 50 MCG/1 ML 2 ML VIAL ONE (14:27)
--- NOTE | 2017-06-27 14:46 | History & Physical Bridge Note ---
H&P Re-Evaluation Bridge Note: I have examined the patient, reviewed the History & Physical and in the interval since the performance of the History & Physical I have noted the following changes of clinical significance: Ptient with dislocated THR. NPO for 6+ hours with some weakness of Sciatic nerve function. Concerned that dislocated hip pushing on nerve. Feel the risks of waiting for additional time outweight benefits and best to relocate hip now and not wait additional 2 hours.
--- NOTE | 2017-06-27 15:04 | HISTORY & PHYSICAL EXAMINATION ---
DATE OF ADMISSION: 06/27/2017 ADDENDUM: ASSESSMENT AND PLAN: Sarina Pugh is a 61-year-old female now 6 months out from a right total hip replacement with underlying rheumatoid disease. She dislocated her hip earlier today. X-rays show a posterior dislocation. On exam, she does have some weakness in her sciatic nerve function with plantarflexion of her foot. It is intact, but this appears to be weak. She has been n.p.o. for 6+ hours and I think additional time is not appropriate to wait for an additional 2 hours for n.p.o. status concerned that she may be putting some pressure of the head on her sciatic nerve. I think it is more likely to due damage to let this sit 2 hours and than the risk of aspiration. I discussed these risks and we are going to proceed with a closed reduction, once again the nerve seems to function, but seems to be weak and I am concerned about leaving additional pressure on this nerve for additional several hours and I think it is best to do this relatively urgently. We are going to proceed with a closed reduction. The risks and benefits of this procedure were explained to the patient and family including but not limited to DVT, PE, fracture, dislocation, persistent nerve dysfunction, recurrent dislocation and inability to get the hip is located. They understands and desires to proceed. Informed consent was obtained. CARLEY
--- NOTE | 2017-06-27 15:06 | [facility] Post Operative Brief Note ---
Immediate Operative Summary Operative Date Jun 27, 2017. Pre-Operative Diagnosis Right Dislocated THR Post-Operative Diagnosis Same Procedure(s) Performed Closed reduction of right THR Surgeon Godwin [employer] Supervisor Surgeon(s) SHRUTI Devlin Estimated Blood Loss None Findings Dislocated THR Specimens None Anesthesia General Complication(s) None Disposition Recovery Room / PACU
--- NOTE | 2017-06-27 15:10 | Discharge Instructions ---
Discharge Instructions Date of Service Jun 27, 2017. Admission Reason for Admission: R Hip Pain, Hip Replacement Discharge Discharge Diagnosis / Problem: right hip dislocation Discharge Goals Goal(s): Decrease discomfort, Improve function, Therapeutic intervention Activity Recommendations Activity Limitations: per Instructions/Follow-up section Weightbearing Status: Right weightbearing (as tolerated) total hip precautions. sleep with a pillow between legs. . Instructions / Follow-Up Instructions / Follow-Up MEDICATIONS: * Resume previous medications unless instructed otherwise by your surgeon. * Always take pain medication on a full stomach or with food to avoid upset stomach. * Do not drink alcohol or drive while taking narcotics. * Ibuprofen or Tylenol may be taken if narcotic not needed. SPECIAL CARE INSTRUCTIONS: __ None __ Keep extremity elevated and iced x 48 hours; apply ice 20-30 minutes 8-10 times/day. May remove at night. __ Crutches __ May discard when able __ Brace/Post-op shoe __ 24 hrs/day __ Remove at night __ Dressing __ Maintain until seen in office, may shower with plastic over site __ Remove dressings in 24-48 hours and then may shower __ Cover incisions with band-aids after showering __ Do not remove steri-strips Call physician if chills or temperature rises above 102 degrees or pain unrelieved by prescribed pain medications. Office [phone] Follow up in 2-4 weeks. Weightbearing as tolerated. hip precautions. sleep with pillow between legs. Current Hospital Diet Patient's current hospital diet: Discharge Diet Recommended Diet: Regular Diet Procedures Procedures Performed: Closed reduction of right THR Pending Studies Studies pending at discharge: no Medical Emergencies . Who to Call and When: Medical Emergencies: If at any time you feel your situation is an emergency, please call 911 immediately. . Non-Emergent Contact Non-Emergency issues call your: Surgeon . "Provider Documentation" section prepared by Joe Devlin. . VTE Core Measure Inpt VTE Proph given/why not?: Treatment not indicated
[2017-06-27] MEDS ORDERED: SODIUM CHLORIDE 0.9% 1000ML 1,000 ML IV SCH (15:11)
[2017-06-27] MEDS ORDERED: ONDANSETRON INJ 2 MG/ML 2 ML VIAL IV PRN (15:15)
[2017-06-27] MEDS ORDERED: ATROPINE SULFATE 0.1 MG/ML 5ML SYR IV PRN (15:15)
[2017-06-27] MEDS ORDERED: PROMETHAZINE HCL INJ 6.25 MG in SODIUM CHLORIDE 0.9% 50ML 50 ML IV PRN (15:15)
[2017-06-27] MEDS ORDERED: EpHEDrine SULFATE INJ 50 MG/ML AMP IV PRN (15:15)
[2017-06-27] MEDS ORDERED: FENTANYL CITRATE INJ 50 MCG/1 ML 2 ML VIAL IV PRN (15:15)
[2017-06-27] MEDS ORDERED: OXYCODONE/ACETAMINOPHEN 5-325 TAB PO PRN ×2 (15:15)
[2017-06-27] MEDS ORDERED: SUCCINYLCHOLINE 100MG/5ML SYR IV ONE (15:23)
[2017-06-27] MEDS ORDERED: DEXAMETHASONE SOD INJ 4 MG/ML VIAL ONE (15:23)
[2017-06-27] MEDS ORDERED: ONDANSETRON INJ 2 MG/ML 2 ML VIAL ONE (15:23)
--- NOTE | 2017-06-27 15:49 | DIAGNOSTIC IMAGING REPORT ---
Radiology RIGHT HIP UNILATERAL 1 VIEW CLINICAL HISTORY: 61 years-old Female presenting with C/R RT HIP Right. TECHNIQUE: 3 fluoroscopic spot image(s) obtained as part of an intraoperative procedure. COMPARISON: 06/27/2017. FINDINGS/IMPRESSION: There has been interval reduction of previously noted dislocation of the right hip. Again noted are postsurgical changes of total right hip arthroplasty. No gross evidence of fracture. No residual malalignment. Please see surgical report for further details. Fluoroscopy dosage (mGy): Not available. Fluoroscopy time: 19 seconds. Number of fluoroscopic spot images: 3. Electronically signed by: Dre Ward M.D. 06/27/2017 3:48 PM Dictated Date/Time: 06/27/2017 3:47 PM
[2017-06-27 16:00] VITALS: BP 100/56; PULSE 75; TEMP 36.5; O2SAT 99
--- NOTE | 2017-06-27 16:02 | Anesthesiology Progress Note ---
Anesthesia Post Op Note Date & Time Jun 27, 2017 at 16:02 Vital Signs Pain Intensity: 0 Vital Signs Past 12 Hours Date Time Temp Pulse Resp B/P (MAP) Pulse Ox O2 Delivery O2 Flow Rate FiO2 06/27/17 15:45 61 16 104/60 100 Room Air 06/27/17 15:35 65 16 105/56 100 Oxymask 10 06/27/17 15:25 64 16 103/53 100 Oxymask 10 06/27/17 15:16 36.3 60 16 107/60 100 Oxymask 10 06/27/17 14:11 64 16 112/66 96 06/27/17 13:43 55 122/65 100 Nasal Cannula 2.0 06/27/17 13:37 36.5 18 103/61 100 Nasal Cannula 2.0 06/27/17 12:59 100 Nasal Cannula 2.0 06/27/17 12:55 67 103/61 93 Room Air 06/27/17 12:29 49 104/63 100 Room Air 06/27/17 12:20 51 18 103/59 99 Room Air 06/27/17 12:16 55 06/27/17 12:14 36.5 52 18 103/59 97 Room Air Notes Mental Status: alert / awake / arousable, participated in evaluation Pt Amnestic to Procedure: Yes Nausea / Vomiting: adequately controlled Pain: adequately controlled Airway Patency, RR, SpO2: stable & adequate BP & HR: stable & adequate Hydration State: stable & adequate Anesthetic Complications: no major complications apparent
[2017-06-27 16:30] VITALS: BP 109/60; PULSE 61; O2SAT 100
[2017-06-27 16:58] VITALS: BP 112/58; PULSE 60; TEMP 36.4; O2SAT 100
--- NOTE | 2017-06-27 22:47 | OPERATIVE REPORT ---
DATE OF OPERATION: 06/27/2017 SURGEON: Isauro Connelly MD. THERAPEUTIC ASSISTANT: DARLENE Owens. PREOPERATIVE DIAGNOSIS: Right dislocated total hip arthroplasty. POSTOPERATIVE DIAGNOSIS: Same. PROCEDURE PERFORMED: Closed reduction of right dislocated total hip replacement. COMPLICATION: None. ESTIMATED BLOOD LOSS: None. ANESTHESIA: General. SPECIMENS: None. OPERATIVE INDICATIONS: The patient is a 61-year-old female with underlying rheumatoid arthritis, who is now 6 months out from a total hip replacement. She has done remarkably well and without any problems. This morning she was out in her garden weeding and she bent over and twisted and pulled on something and her hip popped out. She was seen in the Emergency Room, x-rays revealed dislocation. We were consulted and the patient was indicated for closed reduction. Of note, the patient does seem to have a little bit of weakness in her sciatic nerve function and I was concerned about pressure being placed on the nerve by the hip prosthesis dislocated posteriorly and superiorly, and we elected to proceed with relatively urgent relocation. OPERATIVE PROCEDURE: The patient was taken to the operating room, identified and placed on the operating table in supine position. All contact areas were meticulously padded. General anesthetic was implemented by anesthesia team. X-ray was then brought in. I applied some longitudinal traction, flexed her hip and adducted her hip and internally rotated it. I was able to relocate the hip without extreme tension or difficulty. Post-reduction exam revealed the hip to be extremely stable. I could flex her hip to 90 degrees, adduct and internally rotate to 50 degrees without signs of instability. X-ray was obtained to rule out any fracture. The patient was then brought out of general anesthesia and transferred to the recovery room in stable condition. The patient tolerated the procedure well with no complications. She was neurologically intact in recovery room with normal sciatic nerve function. I attest to the content of the Intraoperative Record and any orders documented therein. Any exceptions are noted below. CARLEY
== END 2017-06-27 14:12 | disposition home or self-care (01) ==
LOC: C.EDB 11:31
DX: S73.004A Unspecified dislocation of right hip, initial encounter (principal); X50.9XXA Other and unspecified overexertion or strenuous movements or postures, initial encounter; M06.9 Rheumatoid arthritis, unspecified; M16.11 Unilateral primary osteoarthritis, right hip

== ENCOUNTER → 2017-08-24 | Outpatient (CLI) | payer BC ==
[~2017-08-24] MED LIST changes: -ASPEC325 PO; -FRRG PO; +MTH25 PO
--- NOTE | 2017-08-24 09:36 | DIAGNOSTIC IMAGING REPORT ---
(CHEST) THORAX WITHOUT CLINICAL HISTORY: Pulmonary nodules. Follow-up study. COMPARISON STUDY: 11/23/2016 CT DOSE: 210.96 mGy.cm TECHNIQUE: CT of the thorax was performed from the thoracic inlet to the lung bases. Images are reviewed in the axial, sagittal, and coronal planes. IV contrast was not administered for this examination. A dose lowering technique was utilized adhering to the principles of ALARA. FINDINGS: Thyroid: There is equivocal 1 cm left lobe thyroid nodule Thoracic aorta: The thoracic aorta is normal in course and caliber, noting standard 3 vessel arch anatomy. Heart: There is a trace pericardial effusion. Lungs and pleural spaces: No pleural effusions are visualized. There is no focal pulmonary consolidation. There are multiple bilateral subcentimeter parenchymal and subpleural nodules, essentially unchanged from the prior study. Mediastinum: There is no pathologic mediastinal lymphadenopathy Angella: There is no pathologic hilar adenopathy given the limitations of a noncontrast study Axilla: There is no pathologic axillary lymphadenopathy Upper abdomen: Partially visualized upper abdominal viscera is within normal limits. Skeletal structures: There are no lytic or blastic osseous lesions. IMPRESSION: Multiple bilateral subcentimeter parenchymal and subpleural pulmonary nodules, essentially unchanged from the preceding study. Electronically signed by: Flo Lacy M.D. 08/24/2017 9:34 AM Dictated Date/Time: 08/24/2017 9:25 AM
== END | disposition home or self-care (01) ==
LOC: C.CTS 09:08
PROVIDERS: ATTEND Internal Medicine
DX: R91.8 Other nonspecific abnormal finding of lung field (principal)

== ENCOUNTER → 2017-11-22 | Outpatient (CLI) | payer OTHER ==
[~2017-11-22] MED LIST changes: -FOLI1TAB7 PO; +FOLI1TAB8 PO
--- NOTE | 2017-11-22 14:29 | MAMMOGRAPHY REPORT ---
BILATERAL DIGITAL SCREENING MAMMOGRAM TOMOSYNTHESIS WITH CAD: 11/22/2017 CLINICAL HISTORY: Routine screening examination. TECHNIQUE: Breast tomosynthesis in addition to standard 2D mammography was performed. Current study was also evaluated with a Computer Aided Detection (CAD) system. COMPARISON: Comparison is made to exams dated: 01/23/2016 mammogram, 06/11/2014 mammogram, 01/29/2013 ma mmogram, 11/26/2009 mammogram, 09/15/2005 mammogram - [facility], and 10/02/2007. BREAST COMPOSITION: There are scattered areas of fibroglandular density in both breasts. FINDINGS: The parenchymal pattern is similar to prior mammograms. There are stable intramammary lym ph nodes in the lateral right breast. A few benign-appearing calcifications. No developing mass, ar chitectural distortion or cluster of suspicious microcalcifications is seen in either breast. IMPRESSION: ACR BI-RADS CATEGORY 2: BENIGN There is no mammographic evidence of malignancy. A 1 year screening mammogram is recommended. The pa tient will receive written notification of the results. Approximately 10% of breast cancers are not detected with mammography. A negative mammographic report should not delay biopsy if a clinically suggestive mass is present. Gale Springer M.D. ay/:11/22/2017 12:35:10 Ecommerce Project Manager: Martha NAVAS(Marya)(M), [facility] letter sent: Normal 1/2 BI-RADS Code: ACR BI-RADS Category 2: Benign
== END | disposition home or self-care (01) ==
LOC: C.MAMM 08:32
PROVIDERS: ATTEND Obstetrics & Gynecology
DX: Z12.31 Encounter for screening mammogram for malignant neoplasm of breast (principal)

== ENCOUNTER 2018-03-16 16:42 | Emergency (ER) | payer OTHER ==
[~2018-03-16] VITALS: Ht 167.6 cm; Wt 69.7 kg
[2018-03-16 16:51] VITALS: TEMP 36.5; Ht 167.6 cm; Wt 69.7 kg
[2018-03-16] MEDS ORDERED: HYDROmorphone INJ 1 MG/ML SYR IV STA (17:00)
[2018-03-16] MEDS ORDERED: SODIUM CHLORIDE 0.9% 1000ML 1,000 ML IV STA (17:00)
[2018-03-16] MEDS ORDERED: SODIUM CHLORIDE 0.9% 500ML 500 ML IV STA (17:00)
[2018-03-16] MEDS ORDERED: ONDANSETRON INJ 2 MG/ML 2 ML VIAL IV STA (17:00)
--- NOTE | 2018-03-16 17:08 | EMERGENCY ROOM VISIT NOTE ---
History Report prepared by [facility]: Garima De La Paz Under the Supervision of: Dr. Maryellen Gomes M.D. First contact with patient: 16:56 Chief Complaint: HIP PAIN Stated Complaint: DISLOCATED HIP (REPLACED) History of Present Illness The patient is a 62 year old female who presents to the Emergency Room with complaints of sudden right hip pain beginning shortly prior to arrival. The patient states that she had her right hip replaced on 12/17/16 and that she was in her garden today when she bent over and dislocated her hip. She rates her pain at a 5/10. The patient reports a medical history of rheumatoid arthritis. Source of History: patient Onset: shortly prior to arrival Position: other (right hip ) Symptom Intensity: rated at a 5/10 Quality: other (pain) Timing: other (sudden ) Review of Systems See HPI for pertinent positives & negatives. A total of 10 systems reviewed and were otherwise negative. Past Medical & Surgical Medical Problems: (1) Rheumatoid arthritis (2) Right Hip AVN (3) Right Hip DJD Family History Cancer Diabetes mellitus Hypertension Social History Smoking Status: Never Smoker Alcohol Use: none Drug Use: none Marital Status: Housing Status: lives with family Current/Historical Medications Scheduled Folic Acid (Folvite), 1 MG PO HS Methotrexate (Methotrexate), 2.5 MG PO WK Scheduled PRN Cetirizine (Zyrtec), 10 MG PO DAILY PRN for ALLERGIES Prednisone (Prednisone), 5 MG PO DAILY PRN for RHUEMATOID FLARE Allergies Coded Allergies: No Known Allergies (Verified , 03/16/18) Physical Exam Vital Signs Date Time Temp Pulse Resp B/P (MAP) Pulse Ox O2 Delivery O2 Flow Rate FiO2 03/16/18 20:46 64 16 126/58 98 Room Air 03/16/18 20:22 73 14 119/68 98 Room Air 03/16/18 20:20 68 14 108/67 98 Room Air 03/16/18 20:11 67 12 103/60 100 Nasal Cannula 2.0 03/16/18 20:02 76 12 109/85 100 Nasal Cannula 2.0 03/16/18 20:01 76 12 109/85 100 Nasal Cannula 2.0 03/16/18 18:53 58 20 117/80 100 Room Air 03/16/18 17:50 61 16 122/67 99 03/16/18 17:11 61 16 107/64 96 Room Air 03/16/18 17:09 60 03/16/18 16:51 36.5 64 20 95/58 96 Room Air Physical Exam Vital signs reviewed. General: Well-appearing female, in no significant distress. HEENT: No scleral icterus, PERRLA, neck supple. Atraumatic. Cardiovascular: Regular rate and rhythm, no extra sounds. Pulmonary: Clear to auscultation bilaterally, normal work of breathing. Abdomen: Soft, nontender, nondistended, positive bowel sounds. Musculoskeletal: No peripheral edema. Shortening of internal rotation of the right leg with flexion at the hip. Neurovascularly intact distally. Unable to move leg without significant pain. Neurologic: Patient awake alert and oriented x 3 Skin: Warm, dry, no rash Medical Decision & Procedures ER Provider Diagnostic Interpretation: Radiology results as stated below per my review and radiologist interpretation: CHEST ONE VIEW PORTABLE CLINICAL HISTORY: 62 years-old Female presenting with Right hip dislocation. TECHNIQUE: Portable supine AP view of the chest was obtained. COMPARISON: 11/11/2016. FINDINGS: Atherosclerosis of aortic arch. Cardiac silhouette mildly enlarged. No focal opacity. No large effusion or pneumothorax. Osseous structures normal. Upper abdomen normal. IMPRESSION: 1. Apparent mild cardiomegaly, new from prior though this may be due to AP technique. No other convincing evidence of acute cardiopulmonary disease. Electronically signed by: Dre Ward M.D. 03/16/2018 5:57 PM Dictated Date/Time: 03/16/2018 5:56 PM R HIP UNILATERAL 2 VIEWS CLINICAL HISTORY: 62 years-old Female presenting with R hip dislocation. TECHNIQUE: Frontal and crosstable lateral views of the right hip were obtained. COMPARISON: 11/02/2016. FINDINGS: There has been interval total right hip arthroplasty with dislocation of the femoral head component. Crosstable lateral view either demonstrates interval reduction of the dislocation or projectional overlap of the acetabulum and femoral head. No periprosthetic fracture. Visualized portion of the bony pelvis intact. No hardware complication. No radiographic soft tissue abnormality. IMPRESSION: The femoral head component of the total right hip arthroplasty overlaps with the acetabulum on crosstable lateral view whereas the initial radiograph demonstrated dislocation of the femoral head component. This could indicate spontaneous reduction or be artifactual due to projectional overlap of the prosthetic components. Follow-up radiograph recommended. Electronically signed by: Dre Ward M.D. 03/16/2018 5:56 PM Dictated Date/Time: 03/16/2018 5:54 PM R HIP UNILATERAL 2 VIEWS HISTORY: 62 years-old Female R hip reduction status post reduction of right hip dislocation COMPARISON: Right hip radiographs of same day at 5:19 PM TECHNIQUE: 2 views of the right hip FINDINGS: Status post reduction of the right hip arthroplasty which now appears to be in satisfactory positioning. The acetabular component however appears to be tilted somewhat volarly. The bones are mildly demineralized. Mild osteoarthritis about the left hip. Phleboliths of the pelvis. Mild soft tissue swelling about the right hip. IMPRESSION: Status post reduction of the right hip arthroplasty with satisfactory alignment. The above report was generated using voice recognition software. It may contain grammatical, syntax or spelling errors. Electronically signed by: Stuart Caceres M.D. 03/16/2018 8:33 PM Dictated Date/Time: 03/16/2018 8:30 PM Laboratory Results 03/16/18 17:06 Red Blood Count 4.19, Mean Corpuscular Volume 92.4, Mean Corpuscular Hemoglobin 31.0, Mean Corpuscular Hemoglobin Concent 33.6, Mean Platelet Volume 10.2, Neutrophils (%) (Auto) 62.1, Lymphocytes (%) (Auto) 27.8, Monocytes (%) (Auto) 7.3, Eosinophils (%) (Auto) 2.1, Basophils (%) (Auto) 0.5, Neutrophils # (Auto) 3.48, Lymphocytes # (Auto) 1.56, Monocytes # (Auto) 0.41, Eosinophils # (Auto) 0.12, Basophils # (Auto) 0.03 03/16/18 17:06 Test 03/16/18 17:06 White Blood Count 5.61 K/uL (4.8-10.8) Red Blood Count 4.19 M/uL (4.2-5.4) Hemoglobin 13.0 g/dL (12.0-16.0) Hematocrit 38.7 % (37-47) Mean Corpuscular Volume 92.4 fL (80-100) Mean Corpuscular Hemoglobin 31.0 pg (25-34) Mean Corpuscular Hemoglobin Concent 33.6 g/dl (32-36) Platelet Count 217 K/uL (130-400) Mean Platelet Volume 10.2 fL (7.4-10.4) Neutrophils (%) (Auto) 62.1 % Lymphocytes (%) (Auto) 27.8 % Monocytes (%) (Auto) 7.3 % Eosinophils (%) (Auto) 2.1 % Basophils (%) (Auto) 0.5 % Neutrophils # (Auto) 3.48 K/uL (1.4-6.5) Lymphocytes # (Auto) 1.56 K/uL (1.2-3.4) Monocytes # (Auto) 0.41 K/uL (0.11-0.59) Eosinophils # (Auto) 0.12 K/uL (0-0.5) Basophils # (Auto) 0.03 K/uL (0-0.2) RDW Standard Deviation 43.5 fL (36.4-46.3) RDW Coefficient of Variation 13.0 % (11.5-14.5) Immature Granulocyte % (Auto) 0.2 % Immature Granulocyte # (Auto) 0.01 K/uL (0.00-0.02) Anion Gap 6.0 mmol/L (3-11) Est Creatinine Clear Calc Drug Dose 70.0 ml/min Estimated GFR () 95.2 Estimated GFR (Non- 82.2 BUN/Creatinine Ratio 23.9 (10-20) Calcium Level 8.7 mg/dl (8.5-10.1) Magnesium Level 2.1 mg/dl (1.8-2.4) Total Bilirubin 0.6 mg/dl (0.2-1) Direct Bilirubin 0.1 mg/dl (0-0.2) Aspartate Amino Transf (AST/SGOT) 12 U/L (15-37) Alanine Aminotransferase (ALT/SGPT) 16 U/L (12-78) Alkaline Phosphatase 70 U/L (45-117) Total Protein 7.1 gm/dl (6.4-8.2) Albumin 3.7 gm/dl (3.4-5.0) Laboratory results per my review. Medications Administered Medications (Trade) Dose Ordered Sig/Jeremy Route Start Time Stop Time Status Last Admin Dose Admin Hydromorphone HCl (Dilaudid Inj) 1 mg NOW STAT IV 03/16/18 17:00 03/16/18 17:03 DC 03/16/18 17:11 1 MG Ondansetron HCl (Zofran Inj) 4 mg NOW STAT IV 03/16/18 17:00 03/16/18 17:03 DC 03/16/18 17:11 4 MG Sodium Chloride 1,000 ml @ 125 mls/hr Q8H STAT IV 03/16/18 17:00 03/16/18 21:51 DC 03/16/18 17:11 125 MLS/HR Sodium Chloride 500 ml @ 999 mls/hr Q31M STAT IV 03/16/18 17:00 03/16/18 17:30 DC 03/16/18 17:11 999 MLS/HR Potassium Chloride 100 ml @ 100 mls/hr NOW STAT IV 03/16/18 18:16 03/16/18 19:15 DC 03/16/18 18:50 100 MLS/HR Procedure Procedural Sedation Indication right hip dislocation. Total time: 6257-5617 (15 minutes) Written consent was obtained after the risks and benefits were explained to the patient, including, but not limited to aspiration, allergic reaction, breathing difficulties, cardiac complications, vomiting, pain, event recall, bleeding, and /or infection. Pre-sedation examination and paperwork completed. The patient was on 100% oxygen via NRB prior to the procedure. Continuous end tidal CO2 monitoring, pulse oximetry, and cardiac monitoring were utilized. Suction, airway equipment, medications, respiratory equipment, and appropriate personnel were prepared prior to the initiation of the procedure. A time out was taken. Sedation was achieved utilizing 75 mg of Propofol. After I observed the patient had reached the appropriate level of sedation the main procedure was performed without complication. Sedation was discontinued and the monitoring continued. The patient recovered quickly from the effects of the medication without complication or adverse event. ECG Per My Interpretation Indication: weakness Rate (beats per minute): 57 Rhythm: sinus bradycardia Findings: no acute ischemic change, no ectopy ED Course 165: Past medical records reviewed. The patient was evaluated in room B1. A complete history and physical examination was performed. 1700: Ordered Sodium Chloride 500 ml @ 999 mls/hr IV, Sodium Chloride 1,000 ml @ 125 mls/hr IV, Zofran Inj 4 mg IV, Dilaudid Inj 1 mg IV. 175: I reviewed the patient's case with Dr. Connelly. I will sedate the patient with Dr. Connelly at 2029. 175: I updated the patient. 1815: Ordered Potassium Chloride 100 ml @ 100 mls/hr IV. 1832: Ordered Propofol 100 mg IV. 2001: Conscious sedation was performed. 2034: Dr. Connelly said that the patient can go home after she wakes up a little. 2109: Upon reevaluation, the patient appeared to have improvement of her symptoms. I discussed findings with her. She verbalized agreement of the treatment plan. She was discharged home. Medical Decision Differential diagnosis: Etiologies such as fracture, dislocation, neurovascular compromise, compartment syndrome, soft tissue injury, as well as others were entertained. This patient was evaluated and appeared to be in right lower extremity is noted to be shortened and internally rotated. X-ray was obtained and reveals some discomfort. IV access was obtained and laboratory work was drawn. Patient's a dislocated hip arthroplasty. There is no apparent bony fracture. Dr. Connelly of orthopedic surgery was consulted. He agreed to evaluate the patient in the emergency department for reduction. The patient's last meal was around 12:00 today with a cut out worker snack at 2 PM. Patient was held until 8 PM for conscious sedation by myself with Dr. Connelly doing a hip reduction. Please read notes for further details. Patient tolerated the procedure well, the hip was reduced without difficulty. She recovered in the emergency department and was discharged with care of her . She will follow-up with Dr. Connelly in the office and return to the ER for worsening of symptoms or any medical concerns. Medication Reconcilliation Current Medication List: was personally reviewed by me Blood Pressure Screening Patient's blood pressure: Normal blood pressure Consults Time Called: 1749 Consulting Physician: Dr. Isaac Connelly [facility] Returned Call: 1750 I reviewed the patient's case with Dr. Connelly. I will sedate the patient with Dr. Connelly at 2029. Impression Primary Impression: Dislocation of right hip Additional Impression: S/P total hip arthroplasty Scribe Attestation The scribe's documentation has been prepared under my direction and personally reviewed by me in its entirety. I confirm that the note above accurately reflects all work, treatment, procedures, and medical decision making performed by me. Departure Information Dispostion Home / Self-Care Referrals Andrea Sharif M.D. (PCP) Isauro Connelly M.D. Forms HOME CARE DOCUMENTATION FORM, IMPORTANT VISIT INFORMATION, WORK / SCHOOL INSTRUCTIONS Patient Instructions Hip Precautions, My [employer] Additional Instructions Diagnosis: Right hip dislocation, status post hip replacement Please contact Dr. Connelly for follow-up within the next 2 weeks. Continue hip precautions as previously instructed. Return to the emergency department for worsening of symptoms or any medical concerns. Problem Qualifiers
[2018-03-16 17:23] LABS: BASO % 0.5 %; BASO ABS # 0.03 K/uL (0-0.2); EOS % 2.1 %; EOS ABS # 0.12 K/uL (0-0.5); HEMATOCRIT 38.7 % (37-47); IG# 0.01 K/uL (0.00-0.02); LYMPH % 27.8 %; LYMPH ABS # 1.56 K/uL (1.2-3.4); MEAN CELL VOLUME 92.4 fL (80-100); MEAN CORPUSCULAR HGB CONC 33.6 g/dl (32-36); MEAN PLATELET VOLUME 10.2 fL (7.4-10.4); MONO % 7.3 %; MONO ABS # 0.41 K/uL (0.11-0.59); NEUT % 62.1 %; NEUT ABS # 3.48 K/uL (1.4-6.5); PLATELET COUNT 217 K/uL (130-400); RED CELL DISTRIBUTION WIDTH SD 43.5 fL (36.4-46.3); WHITE BLOOD COUNT 5.61 K/uL (4.8-10.8)
[2018-03-16 17:45] LABS: ALBUMIN 3.7 gm/dl (3.4-5.0); CALCIUM 8.7 mg/dl (8.5-10.1); CREATININE 0.77 mg/dl (0.60-1.20); POTASSIUM 3.4 mmol/L (3.5-5.1)
[2018-03-16 17:48] LABS: TOTAL PROTEIN 7.1 gm/dl (6.4-8.2)
[2018-03-16] MEDS ORDERED: CETI10TA84 PO (17:55)
--- NOTE | 2018-03-16 17:57 | DIAGNOSTIC IMAGING REPORT ---
R HIP UNILATERAL 2 VIEWS CLINICAL HISTORY: 62 years-old Female presenting with R hip dislocation. TECHNIQUE: Frontal and crosstable lateral views of the right hip were obtained. COMPARISON: 11/02/2016. FINDINGS: There has been interval total right hip arthroplasty with dislocation of the femoral head component. Crosstable lateral view either demonstrates interval reduction of the dislocation or projectional overlap of the acetabulum and femoral head. No periprosthetic fracture. Visualized portion of the bony pelvis intact. No hardware complication. No radiographic soft tissue abnormality. IMPRESSION: The femoral head component of the total right hip arthroplasty overlaps with the acetabulum on crosstable lateral view whereas the initial radiograph demonstrated dislocation of the femoral head component. This could indicate spontaneous reduction or be artifactual due to projectional overlap of the prosthetic components. Follow-up radiograph recommended. Electronically signed by: Dre Ward M.D. 03/16/2018 5:56 PM Dictated Date/Time: 03/16/2018 5:54 PM
--- NOTE | 2018-03-16 17:59 | DIAGNOSTIC IMAGING REPORT ---
CHEST ONE VIEW PORTABLE CLINICAL HISTORY: 62 years-old Female presenting with Right hip dislocation. TECHNIQUE: Portable supine AP view of the chest was obtained. COMPARISON: 11/11/2016. FINDINGS: Atherosclerosis of aortic arch. Cardiac silhouette mildly enlarged. No focal opacity. No large effusion or pneumothorax. Osseous structures normal. Upper abdomen normal. IMPRESSION: 1. Apparent mild cardiomegaly, new from prior though this may be due to AP technique. No other convincing evidence of acute cardiopulmonary disease. Electronically signed by: Dre Ward M.D. 03/16/2018 5:57 PM Dictated Date/Time: 03/16/2018 5:56 PM
[2018-03-16] MEDS ORDERED: POTASSIUM CHLR 10 MEQ / WTR 100 ML IV STA (18:16)
[2018-03-16] MEDS ORDERED: PROPOFOL IV EMULSION 10 MG/ML 20 ML VIAL IV STA (18:33)
[2018-03-16 20:02] VITALS: BP 109/85; PULSE 76; O2SAT 100
[2018-03-16 20:20] VITALS: BP 108/67; PULSE 68; O2SAT 98
--- NOTE | 2018-03-16 20:34 | DIAGNOSTIC IMAGING REPORT ---
R HIP UNILATERAL 2 VIEWS HISTORY: 62 years-old Female R hip reduction status post reduction of right hip dislocation COMPARISON: Right hip radiographs of same day at 5:19 PM TECHNIQUE: 2 views of the right hip FINDINGS: Status post reduction of the right hip arthroplasty which now appears to be in satisfactory positioning. The acetabular component however appears to be tilted somewhat volarly. The bones are mildly demineralized. Mild osteoarthritis about the left hip. Phleboliths of the pelvis. Mild soft tissue swelling about the right hip. IMPRESSION: Status post reduction of the right hip arthroplasty with satisfactory alignment. The above report was generated using voice recognition software. It may contain grammatical, syntax or spelling errors. Electronically signed by: Stuart Caceres M.D. 03/16/2018 8:33 PM Dictated Date/Time: 03/16/2018 8:30 PM
[2018-03-16 20:46] VITALS: BP 126/58; PULSE 64; O2SAT 98
--- NOTE | 2018-03-16 21:52 | HISTORY & PHYSICAL EXAMINATION ---
DATE OF ADMISSION: 03/16/2018 CHIEF COMPLAINT: Right hip pain. HISTORY OF PRESENT ILLNESS: The patient is a 62-year-old female who is well known to me from multiple hip problems in the past. She has been a long-term rheumatoid patient and sustained a valgus impacted femoral neck fracture back in 2013, treated with cannulated screw fixation. She did pretty well for a couple of years and then developed significant arthritis in her right hip. She then underwent a right total hip replacement done in 12/2016. She did quite well and then dislocated 6 months postoperatively when pulling some weeds. She underwent a closed reduction and has not had any problems until today. Earlier today she was out weeding and bending over and she went to stand up and her hip popped out. She was bending at her waist. Acute onset of pain. She has not had any pain since then. Could not walk. She was brought to the Emergency Room where x-rays revealed a dislocated total hip replacement. We are consulted for evaluation. Once again, she has had no pre interval pain or problems with her hip. PAST MEDICAL HISTORY: 1. Colon cancer, status post resection without recurrence. 2. Rheumatoid disease x6 plus years. PAST SURGICAL HISTORY: Include, 1. . 2. Colon resection. 3. Hysterectomy. 4. Right hip fracture done on 06/26/2014. 5. Right total hip replacement done in 12/2016. 6. Dislocated hip relocation done in 06/2017. ALLERGIES: None. CURRENT MEDICATIONS: 1. Methotrexate. 2. Folic acid. 3. Prednisone p.r.n. SOCIAL HISTORY: A 62-year-old female. Very active. She has been a long-term rheumatoid patient. FAMILY HISTORY: Noncontributory. REVIEW OF SYSTEMS: As above. No other injuries. No chest pain, no shortness of breath. No history of DVT or PE. PHYSICAL EXAMINATION: GENERAL: Reveals a pleasant, awake, alert, middle-aged female. She is lying in bed, looks reasonably comfortable. HEENT: Benign. NECK: Supple. No lymphadenopathy. LUNGS: Clear to auscultation. HEART: Regular rate and rhythm. ABDOMEN: Soft, nontender, nondistended. EXTREMITIES: Grossly neurovascularly intact except as follows. Examination of the right hip and leg reveals the right hip to be markedly internally rotated and slightly shortened. She can flex and extend her toes appropriately. Any movement causes pain. She is neurologically intact. X-RAYS: X-ray of the right hip reviewed. She has superior and slightly posterior hip dislocation. No signs of fracture. The implants look well positioned and also intact without signs of fracture. No signs of loosening or wear. ASSESSMENT: A 62-year-old rheumatoid patient 16 months out from a total hip replacement done for DJD after fracture with a second recurrent dislocation. She has done well in between times. We talked about treatment options. Certainly, this is something that requires a closed reduction now. We talked about placing a constrained liner in the future. She would like to give it another try and see how she does and just avoid these extreme positions. We are going to do a closed reduction under conscious sedation. Her last meal was at 12:30 and she did have some ice cream at 2:00. It has been 6 hours and ER staff will provide us with conscious sedation. The risks and benefits of this procedure were explained to the patient including, but not limited to, DVT, fracture, inability to reduce the hip, recurrent dislocation, need for revision surgery in the future, or neurological injury. The patient understands and desires to proceed. Informed consent was obtained from the patient and witnessed by her . PROCEDURE: Patient was taken to the monitoring room. Conscious sedation was provided by Dr. Maryellen Gomes. A closed reduction was performed with some longitudinal traction, flexion, and internal rotation. I reduced her hip quite easily. Post reduction the hip appeared stable. Post-reduction x-rays revealed the hip to be located. She does have an offset liner. No signs of fracture or other trauma. PLAN: We will leave her to recover. Emphasized the importance of hip precautions. I will see her back in followup in the next 2-4 weeks and will discuss this constrained liner issue again. She will recover in the ER and will be discharged from the ER once medically stable. CARLEY
--- NOTE | 2018-03-17 20:57 | EMERGENCY ROOM VISIT NOTE ---
Pre-Mod Sedation Assessment General Date of Moderate Sedation: March 17, 2018. Review Cardiovascular: regular rate, rhythm, no edema, normal peripheral pulses Abdomen: normal bowel sounds, non tender, soft Lungs: lungs clear Airway Class: II (Rhematoid arthritis) Pre-Sedation Airway Assessment Oral Cavity: WNL Short Thick Neck: No Hx of Sleep Apnea: No Smoking Status: Never Smoker Mallampati Classification: Class I (Sft palate,uvula,fauces,pillar) ASA Classification: Class I Procedure Planning Contraindications-for Mod Sed: None Notes The planned sedation has been discussed with the patient and consent obtained. I have identified the patient, determined the appropriateness of sedation and have assessed the patient immediately prior to the procedure. All medicine(s) and interventions are by my order.
--- NOTE | 2018-03-17 20:59 | Post Sedation Assessment ---
Post Sedation Assessment General Date of Sedation March 17, 2018. Post Procedure Recovery Score Activity: (2) Moves 4 extremities * Respiration: (2) Deep breath/cough Circulation: (2) +/-20% PreAnes Value Consciousness: (2) Fully Awake Oxygen Saturation: (2) > 92% On Room Air Post Anesthesia Score: 10 Discharge Sedation Level of Care: Phase I Post Sedation Plan On clinical assessment, the patient appears to have tolerated the sedation without complications. Patient is recovering as anticipated. Patient will continue to be monitored by nursing and may be discharged when sedation discharge criteria are met per below protocol. Upon Completions of procedure and additional 15 minutes continue every 5 minute vital signs and the P.A.R. score; then discharge to a Phase I or Fast Track to Phase II per the following guidelines: * Discharge Patient to appropriate Phase II area if PAR is 8 or greater or return to pre- procedure baseline. The post - procedure orders will be as directed. * If PAR score is less than 8 or not return to pre-procedure baseline then patient will follow Phase I monitoring till PAR is reached for Phase II. The Phase I may be done in procedure room or may call to secure a Phase I area. * If naloxone or flumazenil are used for reversal, hold in Phase I for an additional 60 -120 minutes before discharge to Phase II. Please call the Sedation Physician to re-evaluate and complete post-note for discharge to Phase II area. Do NOT discharge from procedure sedation or Phase 1 until post- sedation evaluation note is complete by procedure /sedation MD Sedation Discharge Instructions to be given to the patient at discharge to home.
== END 2018-03-16 21:11 | disposition home or self-care (01) ==
LOC: C.EDB 16:43
DX: T84.020A Dislocation of internal right hip prosthesis, initial encounter (principal); X58.XXXA Exposure to other specified factors, initial encounter; Z96.641 Presence of right artificial hip joint; Z79.899 Other long term (current) drug therapy